=== PATIENT | male | born 1940 | race Caucasian/White ===

== ENCOUNTER 2018-12-02 11:57 | Observation (INO) | payer OTHER ==
[~2018-12-02] VITALS: Ht 154.9 cm; Wt 58.5 kg
[~2018-12-02 11:57] MED LIST: DUTA0.5S2 PO; SIMV40TA1 PO; TAMS0.4C96 PO
--- NOTE | 2018-12-02 12:05 | NUR ---
urine cup handed to pt for sample
--- NOTE | 2018-12-02 12:05 | NUR ---
Patient ambulated to bed 6 with family. RN evaluating patient at bedside.
--- NOTE | 2018-12-02 12:06 | NUR ---
Dr. Márquez evaluating patient at bedside.
[2018-12-02 12:08] VITALS: BP 171/89
[2018-12-02] MEDS ORDERED: ALBUTEROL 0.083% 2.5 MG/3 ML NEBU INH ONE (12:25)
[2018-12-02] MEDS ORDERED: IPRATROPIUM 0.02% 0.5 MG/2.5 ML NEBU INH ONE (12:25)
--- NOTE | 2018-12-02 12:27 | NUR ---
accompanied by daughter c/o awoke this am with flank pain non radiating, denies dysuria or injury also adds intermittent productive cough x 2 months fatigue
--- NOTE | 2018-12-02 12:34 | NUR ---
ABG obtained by respiratory therapist.
--- NOTE | 2018-12-02 12:43 | NUR ---
AWAKE AND ALERT VERBALLY RESPONSIVE HX: DENIES ASTHMA COPD EDUCATION PROVIDED WITH ACKNOWLEDGEMENT ON HHN THERPAY GIVEN AND RESPIRATORY DRUGS FOREMENTIONED GIVEN ORDERED ENCOURAGED PATIENT FOR INTERMITTENT DEEP BREATHIN DURING THERAPY
--- NOTE | 2018-12-02 12:45 | NUR ---
Breathing treatment administered at bedside by respiratory therapist.
--- NOTE | 2018-12-02 13:00 | NUR ---
Patient taken to XRAY via wheelchair by tech.
[2018-12-02 13:10] LABS: APPEARANCE,URINE HAZY (CLEAR); BILIRUBIN,URINE NEGATIVE (NEGATIVE); BLOOD, URINE NEGATIVE (NEGATIVE); COLOR,URINE YELLOW (YELLOW); LEUKOCYTE ESTERASE ,URINE NEGATIVE (NEGATIVE); NITRITE, URINE NEGATIVE (NEGATIVE); UGLUCOSE NEGATIVE (NEGATIVE)
[2018-12-02 13:17] LABS: WBC,URINE 0-5 /HPF (0-5)
[2018-12-02 13:19] LABS: RBC,URINE NONE SEEN /HPF (0-5)
[2018-12-02 13:19] LABS: ANION GAP 12.9 (8-16); CARBON DIOXIDE 27.1 mmol/L (21-32); CHLORIDE 99 mmol/L (98-107); CREATININE 0.8 mg/dL (0.7-1.3); GLUCOSE 103 mg/dL (74-106); SODIUM SERUM 135 mmol/L (136-145); UREA NITROGEN, BLOOD 16 mg/dL (7-18)
[2018-12-02 13:26] LABS: ALBUMIN 2.9 g/dL (3.4-5.0); ASPARTATE AMINOTRANSFERASE 19 U/L (15-37); TOTAL BILIRUBIN 0.4 mg/dL (0.0-1.0)
[2018-12-02] MEDS ORDERED: NACL 0.9% 1,000 ML IV ONE (13:45)
--- NOTE | 2018-12-02 14:10 | NUR ---
Sean armstrong in ED - 12/02/18 at 1411 by SAY PT TAKEN TO CT IN A WHEELCHAIR BY RADIOLOGICAL TECH.
--- NOTE | 2018-12-02 14:10 | NUR ---
PATIENT TAKEN TO CT WITH TECH VIA WHEELCHAIR.
[2018-12-02] MEDS ORDERED: LORazepam 2 MG/ML VIAL IVP PRN (15:50)
[2018-12-02] MEDS ORDERED: ALBUTEROL 0.083% 2.5 MG/3 ML NEBU INH PRN (15:50)
[2018-12-02] MEDS ORDERED: MORPHINE SULFATE 2 MG/ML SYR IVP PRN (15:50)
[2018-12-02] MEDS ORDERED: MORPHINE SULFATE 4 MG/ML SYR IVP PRN (15:50)
[2018-12-02 16:15] VITALS: BP 125/82
--- NOTE | 2018-12-02 16:15 | NUR ---
Patient will be admitted to care of DR. WILLOUGHBY. Admited to [facility]. Will go to room 111B. Belongings list completed. Report to NAY BO.
--- NOTE | 2018-12-02 16:15 | NUR ---
RECEIVED PT FROM ER NURSE VIA WHEELCHAIR, PT IS AWAKE AND ALERT AND AMBULATED TO THE BED, HAS AN IV LINE ON THE RT AC G.20 ON SALINE LOCK. VITAL SIGNS CHECKED DONE AND BP IS 125/82, PULSE IS 74, TEMPERATURE IS 97.6, O2 SATURATION IS 98% AND RESPIRATION IS 16/MIN. PT DENIES PAIN AND NO SOB NOTED. WILL CONTINUE TO MONITOR PT.
--- NOTE | 2018-12-02 16:20 | NUR ---
MRSA SWAB WAS DONE TO PT AND SAMPLE WAS SENT TO LAB.
[2018-12-02] MEDS: LACTATED RINGERS 1,000 ML IV SCH (17:00)
--- NOTE | 2018-12-02 17:00 | NUR ---
PT WAS STARTED WITH IVF OF LACTATED RINGERS AT A RATE OF 80ML/HR.
--- NOTE | 2018-12-02 17:26 | NUR ---
PT WAS GIVEN ROCEPHIN NOW VIA IVPB, WILL MONITOR PT.
[2018-12-02 17:31] LABS: HEMOGLOBIN 12.9 g/dL (12.0-18.0); MEAN CORPUSCULAR HEMOGLOBIN 28 pg (27-31); MEAN CORPUSCULAR HGB CONC 33 g/dL (33-37); MEAN CORPUSCULAR VOLUME 84.9 fL (80-94); NEUTROPHILS % (AUTO) 73.1 % (42.2-75.2); PLATELET COUNT (AUTO) 532 K/uL (140-450); RED BLOOD CELL COUNT(AUTO) 4.59 MIL/uL (4.20-6.10); RED CELL DISTRIBUTION WIDTH 15.5 % (11.6-13.7); WHITE BLOOD COUNT (AUTO) 10.2 K/uL (4.8-10.8)
[2018-12-02 17:32] LABS: BASOPHILS # (AUTO) 0.1 K/uL (0.00-0.22); BASOPHILS % (AUTO) 0.5 % (0.0-2.0); EOSINOPHILS # (AUTO) 0.1 K/uL (0-0.4); EOSINOPHILS % (AUTO) 1.4 % (0.0-4.0); LYMPHOCYTES # (AUTO) 1.5 K/uL (2.0-11.5); NEUTROPHILS # (AUTO) 7.5 K/uL (1.8-7.7)
--- NOTE | 2018-12-02 17:50 | NUR ---
PT VERBALIZED THAT HIS VOICE SOUNDS HOARSE, BUT DENIES PAIN IN SWALLOWING, SALINE GARGLE WAS GIVEN TO PT AND PT GARGLED.
--- NOTE | 2018-12-02 18:01 | NUR ---
PT IS HAVING DINNER NOW.
--- NOTE | 2018-12-02 19:30 | NUR ---
ENDORSED PT TO REPORT SPECIALIST NURSE FOR CONTINUITY OF CARE.
--- NOTE | 2018-12-02 19:31 | NUR ---
RECEIVED BEDSIDE REPORT FROM EUGENE TEE. AAOX4. ON ROOM AIR RESPIRATIONS ARE EQUAL AND UNLABORED. PT IV ON RAC 20G LR AT 80ML/H. C/C FLANK PAIN. PT TO BE NPO AFTER MIDNIGHT FOR LUNG BIOPSY TOMORROW. SKIN INTACT. PT IS AMBULATORY. PLAN OF CARE DISCUSSED WITH PT AND FAMILY. CALL LIGHT WITHIN REACH. WILL CONTINUE TO MONITOR.
--- NOTE | 2018-12-02 22:30 | NUR ---
OBTAINED CONSENT FOR CT NEEDLE BIOPSY TOMORROW AT APPROX 1000 AM. PT AWARE OF NPO STATUS. WILL CONTINUE TO MONITOR.
[2018-12-02 23:07] VITALS: BP 114/63
--- NOTE | 2018-12-03 | NUR ---
VITAL SIGNS ARE WITHIN NORMAL LIMITS. NO S/S OF DISTRESS. CALL LIGHT WITHIN REACH. WILL CONTINUE TO MONITOR.
--- NOTE | 2018-12-03 02:00 | NUR ---
PT IS SLEEPING COMFORTABLY IN BED. RESPIRATIONS ARE EQUAL AND UNLABORED. CALL LIGHT IS WITHIN REACH.
[2018-12-03] MEDS: LACTATED RINGERS 1,000 ML IV SCH (04:18)
--- NOTE | 2018-12-03 04:58 | NUR ---
PATIENT SLEEPING COMFORTABLY. NO S/S OF DISTRESS. CALL LIGHT WITHIN REACH.
[2018-12-03 07:22] LABS: BASOPHILS % (AUTO) 0.5 % (0.0-2.0); EOSINOPHILS # (AUTO) 0.3 K/uL (0-0.4); EOSINOPHILS % (AUTO) 3.5 % (0.0-4.0); HEMATOCRIT 33.3 % (36-52); HEMOGLOBIN 11.2 g/dL (12.0-18.0); LYMPHOCYTES # (AUTO) 1.2 K/uL (2.0-11.5); LYMPHOCYTES % (AUTO) 13.8 % (20.5-51.1); MEAN CORPUSCULAR HEMOGLOBIN 28 pg (27-31); MEAN CORPUSCULAR HGB CONC 34 g/dL (33-37); MEAN CORPUSCULAR VOLUME 83.1 fL (80-94); MONOCYTES # (AUTO) 0.9 K/uL (0.8-1.0); MONOCYTES % (AUTO) 10.2 % (1.7-9.3); NEUTROPHILS # (AUTO) 6.3 K/uL (1.8-7.7); PLATELET COUNT (AUTO) 483 K/uL (140-450); RED BLOOD CELL COUNT(AUTO) 4.01 MIL/uL (4.20-6.10); RED CELL DISTRIBUTION WIDTH 15.7 % (11.6-13.7); WHITE BLOOD COUNT (AUTO) 8.8 K/uL (4.8-10.8)
--- NOTE | 2018-12-03 07:25 | NUR ---
GAVE BEDSIDE REPORT TO DAY SHIFT RN. PT ENDORSED IN STABLE CONDITION.
--- NOTE | 2018-12-03 07:33 | NUR ---
RECEIVED PT FROM REPEATER OPERATOR NURSE, PT IS AWAKE AND LYING ON THE BED, AOX4, CAN AMBULATE, RESPONDS APPROPRIATELY, HAS AN IV LINE ON THE RT AC G.20 WITH LR INFUSING AT A RATE OF 80ML/HR. PT DENIES PAIN AND NO SOB NOTED AT THIS TIME. WILL MONITOR PT.
[2018-12-03 07:40] LABS: ALBUMIN 2.4 g/dL (3.4-5.0); ANION GAP 11.6 (8-16); ASPARTATE AMINOTRANSFERASE 17 U/L (15-37); CARBON DIOXIDE 25.5 mmol/L (21-32); CHLORIDE 102 mmol/L (98-107); CREATININE 0.7 mg/dL (0.7-1.3); GLUCOSE 94 mg/dL (74-106); POTASSIUM 4.1 mmol/L (3.5-5.1); SODIUM SERUM 135 mmol/L (136-145); TOTAL BILIRUBIN 0.3 mg/dL (0.0-1.0); UREA NITROGEN, BLOOD 11 mg/dL (7-18)
[2018-12-03] MEDS: FINASTERIDE 5 MG TAB PO SCH (07:59)
[2018-12-03 08:00] VITALS: BP 130/70
[2018-12-03] MEDS: ENOXAPARIN 40 MG/0.4 ML SYR SUBQ SCH (08:00)
[2018-12-03] MEDS: AZITHROMYCIN 500 MG in DEXTROSE 5% 250 ML IV SCH (08:00)
[2018-12-03] MEDS: TAMSULOSIN 0.4 MG CAP PO SCH (08:00)
--- NOTE | 2018-12-03 08:05 | NUR ---
PT IS AWAKE AND ORAL AND IV MEDICATIONS WERE GIVEN AND PT TOLERATED IT. WILL MONITOR PT.
--- NOTE | 2018-12-03 08:17 | NUR ---
PATIENT HAS BEEN SCREENED AND CATEGORIZED HIGH NUTRITION RISK. PATIENT WILL BE SEEN WITHIN 1-2 DAYS OF ADMISSION. 12/03/18-12/04/[address]
[2018-12-03 09:28] LABS: PROTHROMBIN TIME 10.1 secs (10.8-13.4)
--- NOTE | 2018-12-03 10:58 | NUR ---
PT IS OFF THE UNIT NOW FOR A CT NEEDLE BIOPSY, V/S TAKEN, BP IS 102/58, PULSE IS 66, O2 SATURATION IS 97%, RESPIRATION IS 16/MIN AND TEMPERATURE IS 98.3, PT IS STABLE AT THIS TIME.
[2018-12-03] MEDS ORDERED: LIDOCAINE 1% 500 MG/50 ML VIAL INJ SCH (11:35)
[2018-12-03] MEDS: DEXT 5% /NACL 0.9% 1,000 ML IV SCH (14:32)
--- NOTE | 2018-12-03 14:32 | NUR ---
PT WAS STARTED WITH IVF OF D5NS AT 80ML/HR NOW.
[2018-12-03 16:00] VITALS: BP 103/60
--- NOTE | 2018-12-03 16:28 | NUR ---
PT SIGNED THE CONSENT FRO THE BRONCHOSCOPY.
--- NOTE | 2018-12-03 16:28 | NUR ---
12/03/18 RD INITIAL ASSESSMENT COMPLETED PLEASE REFER TO NUTRITION ASSESSMENT UNDER CARE ACTIVITY FOR ESTIMATED NUTRITIONAL NEEDS. 1. CONTINUE CARDIAC DIET TOLERATED 2. IF PO INTAKE FALLS BELOW 75% RECOMMEND LIBERALIZING DIET TO REGULAR 3. RD PROVIDED NUTRITION EDUCATION FOR HIGH CALORIE AND PROTEIN DIET 4. RD TO FOLLOW-UP 3-5 DAYS, MODERATE RISK CLARA MAURER RD
--- NOTE | 2018-12-03 18:38 | NUR ---
PT WAS GIVEN ROCEPHIN NOW VIA IVPB, WILL MONITOR PT.
--- NOTE | 2018-12-03 19:00 | NUR ---
ENDORSED PT TO SECURITY SYSTEM TECHNICIAN NURSE FOR CONTINUITY OF CARE.
--- NOTE | 2018-12-03 19:10 | NUR ---
RECEIVED BEDSIDE REPORT FROM EUGENE TEE. AAOX4. ON ROOM AIR RESPIRATIONS ARE EQUAL AND UNLABORED. PT IV ON RAC 20G LR AT 80ML/H. C/C FLANK PAIN. PT TO BE NPO AFTER MIDNIGHT FOR BRONCHOSCOPY TOMORROW. CONSENT SIGN AND PATIENT IS AWARE. S/P CT NEEDLE BIOPSY BANDAGE ON R CHEST C/D/I. PT IS AMBULATORY. PLAN OF CARE DISCUSSED WITH PT AND FAMILY. CALL LIGHT WITHIN REACH. WILL CONTINUE TO MONITOR.
--- NOTE | 2018-12-03 22:06 | NUR ---
PT IS WATCHING TV COMFORTABLY IN BED. DENIES ANY PAIN. CALL LIGHT WITHIN REACH. WILL CONTINUE TO MONITOR.
[2018-12-03 23:33] VITALS: BP 99/54
--- NOTE | 2018-12-03 23:35 | NUR ---
VITAL SIGNS ARE WITHIN NORMAL LIMITS. NO S/S OF DISTRESS. WILL CONTINUE TO MONITOR.
[2018-12-04] MEDS: DEXT 5% /NACL 0.9% 1,000 ML IV SCH (01:59)
--- NOTE | 2018-12-04 02:30 | NUR ---
PT IS SLEEPING COMFORTABLY IN BED. NO S/S OF DISTRESS. CALL LIGHT IS WITHIN REACH.
--- NOTE | 2018-12-04 04:00 | NUR ---
PT SLEEPING COMFORTABLY IN BED. RESPIRATIONS ARE EQUAL AND UNLABORED. CALL LIGHT WITHIN REACH.
--- NOTE | 2018-12-04 07:23 | NUR ---
GAVE BEDSIDE REPORT TO DAY SHIFT RN. PT ENDORSED IN STABLE CONDITION.
--- NOTE | 2018-12-04 07:24 | NUR ---
Received bedside report from pm nurse Alesha. Pt asleep, respirations even & nonlabored, no signs of distress. Right AC IV intact with ongoing D5NS @ 80ml/hr; left elbow armboard in place secured with gauze. Call light within reach. Will cont to monitor.
[2018-12-04 08:00] VITALS: BP 120/70
--- NOTE | 2018-12-04 08:10 | NUR ---
Vital signs obtained. Pt awake, verbally responsive, aaox4. Intermittent non-productive cough present. Emesis bag provided for disposal of oral secretions, if any. Call light within reach. Pt reminded to remain NPO for anticipated bronchoscopy. Pt verbalized understanding & agree with POC.
[2018-12-04] MEDS: TAMSULOSIN 0.4 MG CAP PO SCH (08:30)
[2018-12-04] MEDS: FINASTERIDE 5 MG TAB PO SCH (09:00)
[2018-12-04] MEDS: AZITHROMYCIN 500 MG in DEXTROSE 5% 250 ML IV SCH (09:42)
[2018-12-04] MEDS: ENOXAPARIN 40 MG/0.4 ML SYR SUBQ SCH (09:48)
--- NOTE | 2018-12-04 11:00 | NUR ---
Dr. Mayo at bedside to assess pt. OR nurses at bedside as well to transport pt for bronchoscopy. Informed OR nurse that pt still running Azithromycin IV. Per nurse, ok to finish it in PerOp. Pt in no distress at this time.
--- NOTE | 2018-12-04 12:20 | NUR ---
Pt came back from OR via hospital bed. Pt aaox4, verbally responsive. Assisted to bathroom, able to amb with steady gait. No signs of distress. Right hand IV intact, D5NS @ 80ml/hr. Call light within reach.
--- NOTE | 2018-12-04 14:15 | NUR ---
CALLED [facility] [phone] SPOKE WITH SIMBA ONOFRE REGARDING F/U WITH DR WILLOUGHBY FOR [facility] RECEIVED THE AUTHORIZATION TO F/U THE OFFICE STATED WHEN HE FEELS BETTER HE CAN CALL TO MAKE THE APPOINTMENT. FOR CARDIO THORACI SURGEON DR ANGULO IS NOT CONTRACTED WITH THE [facility] AND PATIENT NEEDS TO GO TO PCP AND CHOOSE THE CARDIO THORACIC SURGEON. EXPLAINED TO THE PATIENT AND PT VERBALIZED UNDERSTANDING.
[2018-12-04] MEDS ORDERED: LEVO750T2 PO (14:46)
--- NOTE | 2018-12-04 15:00 | NUR ---
Written & verbal discharge instructions provided to pt. Pt verbalized understanding & agree with outpatient follow up with physicians. Right hand IV discontinued, cannula intact. Pt's brother at bedside to transport pt home.
--- NOTE | 2018-12-04 15:15 | NUR ---
Pt discharged to home at this time. Able to amb off unit with steady gait, accompanied by brother. All belongings with pt upon departure. Name band removed.
--- NOTE | 2018-12-04 15:30 | NUR ---
Pt's brother in unit, informed nurse that doctor had put in wrong first name for prescription pad. Rx note states "Petey Santacruz". Pt & brother advised to go to doctor's office [place] [address] [place] [address] to write new prescription. Pt's brother agree to go to doctor's office today.
== END 2018-12-04 15:15 | disposition home or self-care (01) ==
LOC: MED 11:57 → MTU 15:53
PROVIDERS: ADMIT Internal Medicine Pulmonary Disease; ATTEND Internal Medicine Pulmonary Disease
DX: R91.8 Other nonspecific abnormal finding of lung field (principal); R59.0 Localized enlarged lymph nodes; J18.9 Pneumonia, unspecified organism; R63.0 Anorexia; F17.200 Nicotine dependence, unspecified, uncomplicated; Z80.9 Family history of malignant neoplasm, unspecified
CPT/HCPCS: 31624; 36415; 36600; 71045; 71046; 71260; 77012; 80053; 81001; 82803; 83880; 84484; 85025; 85610; 85730; 87081; 93005; 93307; 94640; 94760; 96365; 96366; 96367; 96372; 99285; G0378; J0456; J0696; J1650; J7042; J7060; J7120; J7613; J7644; Q0092; Q9967; 88305; 88313; 88342; 96361

== ENCOUNTER 2021-05-25 11:18 | Emergency (ER) | payer OTHER ==
[~2021-05-25] VITALS: Ht 152.4 cm; Wt 62.6 kg
[~2021-05-25 11:18] MED LIST changes: +LEVO750T2 PO
[2021-05-25 11:25] VITALS: BP 137/78
--- NOTE | 2021-05-25 11:29 | NUR ---
PT AMBULATED TO ER BED 8 WITH A STEADY GAIT.
--- NOTE | 2021-05-25 11:55 | NUR ---
DR ARAMBULA AT BEDSIDE.
[2021-05-25] MEDS ORDERED: cefTRIAXone 2,000 MG in DEXTROSE 5% 100 ML IV ONE (12:00)
[2021-05-25] MEDS ORDERED: NYSTATIN POW 100 MU/GM 15 GM BTL TP SCH (12:00)
[2021-05-25] MEDS ORDERED: NACL 0.9% 1,000 ML IV SCH (12:00)
--- NOTE | 2021-05-25 12:09 | NUR ---
EMT CONNECTING PATIENT TO BEDSIDE MONITOR
--- NOTE | 2021-05-25 12:28 | NUR ---
US TECH AT PT BEDSIDE.
[2021-05-25] MEDS ORDERED: cefTRIAXone 2,000 MG VIAL ONE (12:30)
--- NOTE | 2021-05-25 12:31 | NUR ---
blood work collected beside and walked over to lab
[2021-05-25 12:42] LABS: BASOPHILS % (AUTO) 0.3 % (0.0-2.0); EOSINOPHILS % (AUTO) 0.1 % (0.0-4.0); HEMATOCRIT 41.7 % (36-52); HEMOGLOBIN 14.3 g/dL (12.0-18.0); LYMPHOCYTES # (AUTO) 0.7 K/uL (2.0-11.5); LYMPHOCYTES % (AUTO) 6.7 % (20.5-51.1); MEAN CORPUSCULAR HEMOGLOBIN 30 pg (27-31); MEAN CORPUSCULAR HGB CONC 34 g/dL (33-37); MEAN CORPUSCULAR VOLUME 86.4 fL (80-94); MONOCYTES # (AUTO) 0.7 K/uL (0.8-1.0); MONOCYTES % (AUTO) 6.3 % (1.7-9.3); NEUTROPHILS # (AUTO) 9.5 K/uL (1.8-7.7); NEUTROPHILS % (AUTO) 86.6 % (42.2-75.2); PLATELET COUNT (AUTO) 359 K/uL (140-450); RED BLOOD CELL COUNT(AUTO) 4.83 MIL/uL (4.20-6.10); RED CELL DISTRIBUTION WIDTH 14.8 % (11.6-13.7)
[2021-05-25 13:22] VITALS: BP 121/84
[2021-05-25 13:34] LABS: ANION GAP 13.9 (8-16); ASPARTATE AMINOTRANSFERASE 27 U/L (15-37); CARBON DIOXIDE 25.4 mmol/L (21-32); CHLORIDE 99 mmol/L (98-107); GLUCOSE 109 mg/dL (74-106); POTASSIUM 3.3 mmol/L (3.5-5.1); SODIUM SERUM 135 mmol/L (136-145); TOTAL BILIRUBIN 0.6 mg/dL (0.0-1.0); UREA NITROGEN, BLOOD 18 mg/dL (7-18)
[2021-05-25] MEDS ORDERED: NYST-71 TP (14:08)
[2021-05-25] MEDS ORDERED: SULF-59 PO (14:08)
[2021-05-25] MEDS ORDERED: CEPH-588 PO (14:08)
[2021-05-25] MEDS ORDERED: PYR100 PO (14:08)
[2021-05-25 14:13] LABS: BILIRUBIN,URINE 1+ (NEGATIVE); BLOOD, URINE 3+ (NEGATIVE); COLOR,URINE YELLOW (YELLOW); LEUKOCYTE ESTERASE ,URINE 1+ (NEGATIVE); NITRITE, URINE POSITIVE (NEGATIVE); UGLUCOSE TRACE (NEGATIVE)
--- NOTE | 2021-05-25 14:14 | NUR ---
Patient discharged with v/s stable. Written and verbal after care instructions given and explained. Patient alert, oriented and verbalized understanding of instructions. Ambulatory with steady gait. All questions addressed prior to discharge. ID band removed. Patient advised to follow up with PMD. Rx of CEPHALEXIN, NYSTATIN, PHENAZOPYRIDINE HCI, SULFAMETHOXAZOLE/TRIMETHOPRIN given. Opportunity to ask questions provided and answered.
[2021-05-25 14:15] LABS: RBC,URINE 20-50 /HPF (0-5); WBC,URINE 16-25 (MOD) /HPF (0-5)
[2021-05-25 14:16] LABS: APPEARANCE,URINE HAZY (CLEAR)
--- NOTE | 2021-05-25 14:20 | NUR ---
The patient's care was reviewed and supervised by Vanessa Celis RN.
== END 2021-05-25 14:20 | disposition home or self-care (01) ==
LOC: MED 11:18
DX: N49.2 Inflammatory disorders of scrotum (principal); B35.6 Tinea cruris; E78.5 Hyperlipidemia, unspecified; Z79.899 Other long term (current) drug therapy; Z79.2 Long term (current) use of antibiotics
CPT/HCPCS: 36415; 76870; 80053; 81001; 83605; 85025; 87040; 87086; 96365; 99284; J0696; J7030; Q0092